=== PATIENT | male | born 1985 | race Caucasian/White ===

== ENCOUNTER 2021-05-17 11:50 | Emergency (ER) | payer OTHER, SELFPAY ==
[2021-05-17 12:03] VITALS: BP 129/83; PULSE 91; RESP 18; TEMP 36.7; O2SAT 98; BMI 25.5
--- NOTE | 2021-05-17 14:04 | ED.BACK ---
HPI - Back Pain/Injury General Chief Complaint: Back Pain/Injury Stated Complaint: Low back pain- referred by PCM Time Seen by Provider: 05/17/21 14:04 Source: patient History of Present Illness HPI Narrative: 35-year-old Male nonsmoker without significant medical history presents with a chief complaint of about 24 hours of pain in his right lower back. He denies any specific injury such as heavy lifting, bending or twisting. He denies any traumatic injuries. He has no trouble controlling bowel or bladder. He denies any numbness, tingling or weakness of his lower extremities. The pain does not radiate and is made worse by motion and improves with rest. He has had this flare up a few times off and on over the past few years any tends to improve with muscle relaxers. He denies dysuria, frequency, or urgency. Related Data Allergies Allergy/AdvReac Type Severity Reaction Status Date / Time No Known Drug Allergies Allergy Verified 05/17/21 12:06 Review of Systems Review of Systems Narrative: GENERAL: Denies chills, fatigue, malaise, fever, sweats. HEENT: Denies sinus pain, ear pain, sore throat, difficulty swallowing, dizziness. RESPIRATORY: Denies dyspnea, cough, wheezing, hemoptysis, sputum. CARDIOVASCULAR: Denies chest pain, palpitations, orthopnea, edema, GASTROINTESTINAL: Denies nausea, vomiting, abdominal pain, diarrhea, constipation, melena. : Denies dysuria, frequency, incontinence, hematuria, urinary retention. MUSCULOSKELETAL: See HPI SKIN: Denies rash, skin lesions, or other NEUROLOGIC: Denies weakness, headache, numbness, change in speech, confusion, seizures, incoordination. PSYCHIATRIC: No concerning psychosocial issues. 12 point review of systems is negative except for those stated above Patient History Social History Smoking Status: Never smoker Smoking Status: Never smoker Substance Use Type: does not use Exam Narrative Exam Narrative: GEN: AOx3 and in mild distress EYES: Pupils are equal, round, and reactive to light and accommodation. Extraoccular muscles are intact bilaterally. There is no subconjunctival hemorrhage or exudate. CHEST: Lungs are clear to auscultation bilaterally and free of wheezes, rales, or rhonchi. Heart rate is regular rhythm, there are no murmurs, clicks, rubs, or gallops. There is no chest wall tenderness. ABD: Abdomen is soft and nontender. There is no guarding or rebound. Bowel sounds are normal in all 4 quadrants. There is no mass or organomegaly. BACK: glory hole tender but free of any obvious external abnormalities. Patient exam notes decreased range of motion and muscle spasm, but no CVA tenderness, or vertebral point tenderness. There are no symptoms of cauda equina such as saddle anesthesia, and decreased reflexes, decreased sensation or strength. EXT: Full painless ROM of all extremities with no loss of sensation or strength. SKIN: Warm, pink, and dry. No erythema or rash Initial Vital Signs Initial Vital Signs: Vital Signs Temperature 98.1 F 05/17/21 12:03 Pulse Rate 91 H 05/17/21 12:03 Respiratory Rate 18 05/17/21 12:03 Blood Pressure 129/83 05/17/21 12:03 Pulse Oximetry 98 05/17/21 12:03 Course Vital Signs Vital signs: Vital Signs - 8 hr 05/17/21 12:03 Temperature 98.1 F Pulse Rate 91 H Respiratory Rate 18 Blood Pressure 129/83 Pulse Oximetry 98 MDM - Back Pain/Injury MDM Narrative Medical decision making narrative: Multiple etiologies of back pain considered including; Epidural abscess, cauda equina, mass occupying lesion, and other considered, however history and physical exam are very reassuring and there is no indication that a neuro surgical emergencies present. Patient given return precautions and questions been answered to his apparent satisfaction Discharge Plan Departure Patient Disposition: Home
== END 2021-05-17 14:24 | disposition home or self-care (01) ==
PROVIDERS: Emergency Provider Emergency Medicine
DX: M54.50 Low back pain, unspecified (principal)
CPT/HCPCS: 81003; 99281; 99282